=== PATIENT | male | born 1975 | race Caucasian/White ===

== ENCOUNTER 2021-08-23 03:33 | Emergency (ER) | payer SELFPAY ==
--- OUTSIDE RECORDS SUMMARY | 2021-08-23 03:36 | XMS REPORT | Continuity of Care Document ---
:1975 Author Organization [facility] t Address [address] [place] [address] Care Team Providers Name Role Phone Group, [facility] Physician [phone] Boris PINEDA, Somogyi Attending Clinician Anni PINEDA, H Attending Clinician Carson ALICIA Attending Clinician Advance Directives Directive Decision Effective Termination Comments Source Date Date Healthcare Agents on N/A Marylou dos santos FileNameRelationshipHealthcare Seybold Agent RelationshipCommunicationBea[facility] Hospitalther[facility] [phone] (Mobile) Problems Condition Condition Condition Status Onset Resolution Last Treating Co mments Source Name Details Category Date Date Treatment Clinician Date No known No known Disease Kelse y active active Seybold problems problems Allergies, Adverse Reactions, Alerts This patient has no known allergies or adverse reactions. Social History Social Habit Start Date Stop Date Quantity Comments Source Exposure to Not sure Michelle Rendon maurice SARS-CoV-2 (event) Tobacco use and 2021-07-02 2021-07-02 Smokeless tobacco Adriano Juarez exposure 00:00:00 00:00:00 non-user Sex Ass[birth year] M Michelle carreno 00:00:00 00:00:00 Smoking Status Start Date Stop Date Source Tobacco smoking consumption unknown Michelle Juarez Never smoked tobacco Michelle Zaragoza old Medications Ordered Filled Start Stop Current Ordering Indication Dosage Frequency Signature Comments Components Source Medication Medication Date Date Medication? Clinician (SIG) Name Name Acetaminoph 2021- No 1{tbl} Q4H Take 1 K elsey en-Codeine 3-30 03-30 tablet by Radha bold 300-30 MG 11:29: 00:00 mouth oral Tablet 10 :00 every 4 hours as needed for pain Colchicine Yes [id number] Take 2 Michelle 0.6 MG oral 3-30 9101 tablets by Se ybold Tablet 00:00: mouth for 00 acute gout attack take 1 tablet one hour later Then 1 tablet twice a day til diarrhea or gout resolves Amoxicillin Yes [id number] 1{tbl} Take 1 Michelle -Pot 3-30 tablet by Seybold Clavulanate 00:00: mouth in 875-125 MG 00 the oral Tablet morning and 1 tablet in the evening. Acetaminoph Yes [id number] 1{tbl} Q4H Take 1-2 Michelle en-Codeine 3-30 9101 tablets by y bold 300-30 MG 00:00: mouth oral Tablet 00 every 4 hours as needed for pain Cyclobenzap 2021- No 10mg Q.[id number] Take 10 mg Michelle rine HCl 10 2-07 02-07 [id number] by mouth 3 Seybold MG oral 09:22: 00:00 3D times Tablet 08 :00 daily as needed Ciprofloxac Yes [id number] 500mg Take 1 Michelle in HCl 500 2-07 tablet Seybold MG oral 00:00: (500 mg Tablet 00 total) by mouth 2 times daily Ciprofloxac 2021- No [id number] 500mg Take 1 Michelle in HCl 500 07-02 tablet Seybol d MG oral 00:00: 00:00 (500 mg Tablet 00 :00 total) by mouth 2 times daily Cyclobenzap Yes 10mg Q.[id number] Take 10 mg Michelle rine HCl 10 06-29 [id number] by mouth 3 Seybold MG oral 12:05: 3D times Tablet 14 daily as needed Azithromyci 2020- No [id number] Take 2 Michelle n 250 MG 02-09 tablets by Seyb old oral Tablet 00:00: 04:59 mouth on 00 :00 day 1 then 1 tablet by mouth daily for 4 days thereafter . Immunizations Ordered Immunization Filled Immunization Date Status Commen ts Source Name Name Influenza Virus 2018-05-07 Completed Michelle Se ybold Vaccine, age 6 00:00:00 months and up Influenza Virus 2018-05-07 Completed Michelle Se ybold Vaccine, age 6 00:00:00 months and up Influenza Virus 2016-03-13 Completed Michelle Se ybold Vaccine, age 6 00:00:00 months and up Influenza Virus 2016-03-13 Completed Michelle Se ybold Vaccine, age 6 00:00:00 months and up Vital Signs Vital Name Observation Time Observation Value Comments Source Systolic blood pressure 2021-08-22 15:51:00 136 mm[Hg] Michelle ybirene Diastolic blood 2021-08-22 15:51:00 89 mm[Hg] Kelse y Seybold pressure Heart rate 2021-08-22 15:51:00 69 /min Michelle Claus eva Body temperature 2021-08-22 15:51:00 36.33 Minal Marylou ey Seybold Respiratory rate 2021-08-22 15:51:00 15 /min Marylou ey Seybold Body height 2021-08-22 15:51:00 177.8 cm Michelle Claus eva Body weight 2021-08-22 15:51:00 129.275 kg Michelleradha dos santosboirais BMI 2021-08-22 15:51:00 40.89 kg/m2 Michelle Claus dos santostori Oxygen saturation in 2021-08-22 15:51:00 98 /min Michelle Juarez Arterial blood by Pulse oximetry Systolic blood pressure 2021-07-02 15:16:00 140 mm[Hg] Michelle Juarez Diastolic blood 2021-07-02 15:16:00 89 mm[Hg] Gui Juarez pressure Heart rate 2021-07-02 15:16:00 98 /min Michelle velasquez Body temperature 2021-07-02 15:16:00 37.22 Minal Marylou Juarez Respiratory rate 2021-07-02 15:16:00 15 /min Marylou Juarez Body height 2021-07-02 15:16:00 177.8 cm Michelle velasquez Body weight 2021-07-02 15:16:00 132.904 kg Michelle velasquez BMI 2021-07-02 15:16:00 42.04 kg/m2 Michelle velasquez Procedures Procedure Date / Time Performed Performing Clinician Sourc e URINALYSIS NONAUTO W/O 2021-07-02 15:44:00 Candace Escalante i Michelle Juarez SCOPE Encounters Start End Encounter Admission Attending Care Care Encounter Source Date/Time Date/Time Type Type Clinicians Facility Department ID 2021-08-22 2021-08-22 Office Regis Escalante [id number] Michelle 11:00:00 11:15:00 Visit Candacejj Smith [id number] Se wai Somogyi [id number] 2021-07-02 2021-07-02 Office Regis Escalante [id number] Michelle 09:00:00 09:15:00 Visit Candace Smith [id number] Se joeyirene Somogyi [id number] 2021-06-29 2021-06-29 Telemed[facility] ZEYNEP Hutton [id number] Michelle 11:30:00 11:43:43 ne Izaiah Dougherty [id number] S eva [id number] 2021-02-09 2021-02-09 Tele[facility] Antonio Byrd [id number] Michelle 11:02:11 11:19:25 olman Carri Borges [id number] Se carreno [id number] Results Test Description Test Time Test Comments Results Result Comments Source URINALYSIS NONAUTO W/O SCOPE 2021-07-02 15:44:00 Test Item Value Reference Range Interpretation Comme nts UD KETONES (test code = NEG 5-160 877204) UD GLUCOSE (test code = 2000 g/dL 100-2000 435110) UD PROTEIN (test code = 30 mg/dL Trace - 2,000 277891) UD LEUKOCYTES (test code = TRACE Trace - Large @ 2 480419) min. UD NITRITE (test code = NEG Neg. - Pos. @ 60 307152) sec. UD UROBILINOGEN (test code = 1 mg/dL 0.2-8 305245) UD PH (test code = 996317) See_Comment [Automated message] The system which ge nerated this result tra nsmitted reference range : 5.0 - 8.5 @ 60 sec.. The reference range was not used to interpr et this result as normal/abnormal . UD BLOOD (test code = 891552) LARGE Neg. - Large @ 60 sec. UD SPECIFIC GRAVITY (test See_Comment [ Automated message] The code = 923384) system which generated this result tra nsmitted reference range : 1.000 - 1.030 @ 45 sec. . The reference range was not used to interpr et this result as normal/abnormal . UD BILIRUBIN (test code = NEG Neg. - Large @ 45 928135) sec. Lab Interpretation (test code Abnormal = 38243-7) Michelle Juarez
[2021-08-23] MEDS ORDERED: COLCHICINE 0.6 MG TAB ONE ×2 (04:26→05:42)
[2021-08-23] MEDS ORDERED: MORPHINE 4 MG/ML SYR ONE (04:26)
[2021-08-23] MEDS ORDERED: METHYLPREDNISOLONE 125 MG INJ ONE (04:26)
[2021-08-23] MEDS ORDERED: AMPICILLIN/SULBACTAM 3GM/VIAL ONE (04:26)
[2021-08-23] MEDS ORDERED: NA CHLORIDE 0.9% 2,000 ML ONE (04:27)
[2021-08-23] MEDS ORDERED: NA CHLORIDE 0.9% 100 ML IV ONE (04:27)
[2021-08-23] MEDS ORDERED: ONDANSETRON 4 MG/2 ML VIAL ONE (04:27)
[2021-08-23 04:48] LABS: Absolute Lymphocytes (CBC) 1.5 K/uL (0.7-4.9); Hematocrit 41.9 % (39.6-49.0); MPV 10.4 fL (7.6-11.3); RBC Red Blood Cell Count 4.65 M/uL (4.33-5.43)
[2021-08-23 04:49] LABS: Protime INR 1.26
[2021-08-23 05:13] LABS: ALT/SGPT 28 U/L (12-78); AST/SGOT 22 U/L (15-37); Albumin 2.6 g/dL (3.4-5.0); Alkaline Phosphatase 165 U/L (45-117); BUN Blood Urea Nitrogen 13 mg/dL (7-18); Bicarbonate 27 mmol/L (21-32); Bilirubin Direct 0.5 mg/dL (0-0.2); Bilirubin Total 1.2 mg/dL (0.2-1.0); Glucose Level 329 mg/dL (74-106); Lipase 134 U/L (73-393); NT PRO-BNP 77 pg/mL (<125); Potassium 3.6 mmol/L (3.5-5.1); Protein, Total 6.8 g/dL (6.4-8.2); Sodium Level 136 mmol/L (136-145); Troponin High Sensitivity 3.7 pg/mL (<58.9); Uric Acid 4.2 mg/dL (3.5-7.2)
[2021-08-23 05:16] LABS: Magnesium 1.4 mg/dL (1.8-2.4)
[2021-08-23] MEDS ORDERED: predniSONE 20 MG TAB ONE (05:25)
[2021-08-23] MEDS ORDERED: KETOROLAC 30 MG/ML INJ ONE (05:25)
[2021-08-23] MEDS ORDERED: MAGNESIUM SULFATE 1 gm IVPB 1 GM/100 ML BAG IV ONE (05:26)
[2021-08-23] MEDS ORDERED: INSULIN -REGULAR HUMAN 50 UNIT/0.5 ML ML ONE (05:26)
--- NOTE | 2021-08-23 05:35 | EDPHYS ---
Physician Documentation [facility] Name: Miguel Ángel Story Age: 46 yrs Sex: Male : 1975 Arrival Date: 08/23/2021 Time: 03:37 Bed 5 Private MD: SIERRA Physician Saurav Cooper HPI: 08/23 04:18 This 46 yrs old Male presents to ER via Ambulatory with complaints of Arm cornelia Pain. 04:18 The patient or guardian complains of decreased range of motion, injury, pain. The cornelia complaints affect the dorsal aspect of right forearm, right wrist and right hand. Context: The problem was sustained at home, resulted from repetitive motion TEARING UP BOXES. Onset: The symptoms/episode began/occurred 3 day(s) ago. Treatment prior to arrival includes: no previous treatment. Modifying factors: The symptoms are alleviated by remaining still, the symptoms are aggravated by movement, lifting weight. Associated signs and symptoms: The patient has no apparent associated signs or symptoms. Severity of symptoms: At their worst the symptoms were mild, moderate, in the emergency department the symptoms have improved, mildly. The patient has experienced similar episodes in the past, a few times. Historical: - Allergies: 03:43 NKA; as6 - Home Meds: 03:43 None [Active]; as6 - PMHx: 03:43 Depression; Diabetes - NIDDM; GERD; Gout; Hyperlipidemia; Hypertension; as6 - PSHx: 03:43 None; as6 - Immunization history:: Client reports having NOT received the Covid vaccine. - Social history:: Smoking status: Patient denies any tobacco usage or history of. - Family history:: not pertinent. ROS: 04:18 Constitutional: Negative for fever, chills, and weight loss, Eyes: Negative for injury, cornelia pain, redness, and discharge, Neck: Negative for injury, pain, and swelling, Cardiovascular: Negative for chest pain, palpitations, and edema, Respiratory: Negative for shortness of breath, cough, wheezing, and pleuritic chest pain, Abdomen/GI: Negative for abdominal pain, nausea, vomiting, diarrhea, and constipation, Back: Negative for injury and pain, : Negative for injury, bleeding, discharge, and swelling, Skin: Negative for injury, rash, and discoloration, Neuro: Negative for headache, weakness, numbness, tingling, and seizure, Psych: Negative for depression, anxiety, suicide ideation, homicidal ideation, and hallucinations, Allergy/Immunology: Negative for hives, rash, and allergies, Endocrine: Negative for neck swelling, polydipsia, polyuria, polyphagia, and marked weight changes, Hematologic/Lymphatic: Negative for swollen nodes, abnormal bleeding, and unusual bruising. 04:18 ENT: Positive for DRY MM. 04:18 MS/extremity: Positive for decreased range of motion, erythema, pain, swelling, tenderness, of the dorsal aspect of right forearm, right wrist and right hand. Exam: 04:18 Constitutional: This is a well developed, well nourished patient who is awake, alert, cornelia and in no acute distress. Head/Face: Normocephalic, atraumatic. Eyes: Pupils equal round and reactive to light, extra-ocular motions intact. Lids and lashes normal. Conjunctiva and sclera are non-icteric and not injected. Cornea within normal limits. Periorbital areas with no swelling, redness, or edema. ENT: Nares patent. No nasal discharge, no septal abnormalities noted. Tympanic membranes are normal and external auditory canals are clear. Oropharynx with no redness, swelling, or masses, exudates, or evidence of obstruction, uvula midline. Mucous membranes moist. Neck: Trachea midline, no thyromegaly or masses palpated, and no cervical lymphadenopathy. Supple, full range of motion without nuchal rigidity, or vertebral point tenderness. No Meningismus. Chest/axilla: Normal chest wall appearance and motion. Nontender with no deformity. No lesions are appreciated. Cardiovascular: Regular rate and rhythm with a normal S1 and S2. No gallops, murmurs, or rubs. Normal PMI, no JVD. No pulse deficits. Respiratory: Lungs have equal breath sounds bilaterally, clear to auscultation and percussion. No rales, rhonchi or wheezes noted. No increased work of breathing, no retractions or nasal flaring. Abdomen/GI: Soft, non-tender, with normal bowel sounds. No distension or tympany. No guarding or rebound. No evidence of tenderness throughout. Back: No spinal tenderness. No costovertebral tenderness. Full range of motion. Skin: Warm, dry with normal turgor. Normal color with no rashes, no lesions, and no evidence of cellulitis. Neuro: Awake and alert, GCS 15, oriented to person, place, time, and situation. Cranial nerves II-XII grossly intact. Motor strength 5/5 in all extremities. Sensory grossly intact. Cerebellar exam normal. Normal gait. Psych: Awake, alert, with orientation to person, place and time. Behavior, mood, and affect are within normal limits. 04:18 Musculoskeletal/extremity: Extremities: grossly normal except: decreased ROM, erythema, pain, swelling, tenderness, ROM: limited active range of motion due to pain, limited passive range of motion due to pain, Circulation is intact in all extremities. Sensation intact. Compartment Syndrome exam of affected extremity: is normal. DVT Exam: negative Homans' sign noted on exam, no appreciated bluish discoloration, pain, swelling, tenderness, erythema, increased warmth, that is moderate, of the right hand. 05:38 ECG was reviewed by the Attending Physician. [facility] Vital Signs: 03:40 BP 154 / 104; Pulse 90; Resp 18 S; Temp 97.5(TE); Pulse Ox 97% on R/A; Weight 129.27 kg as6 (R); Height 5 ft. 11 in. (180.34 cm) (R); Pain 10/10; 03:47 BP 134 / 80; Pulse 85; Resp 14; Pulse Ox 96% on R/A; st1 04:10 BP 129 / 83; Pulse 76; Resp 16; Pulse Ox 96% on R/A; st1 05:05 BP 122 / 77; Pulse 74; Resp 18 S; Pulse Ox 96% on R/A; as6 05:54 BP 121 / 79; Pulse 84; Resp 18 S; Pulse Ox 95% on R/A; as6 06:07 BP 121 / 80; Pulse 75; Resp 16; Pulse Ox 100% on R/A; st1 03:40 Body Mass Index 39.75 (129.27 kg, 180.34 cm) as6 Peter Coma Score: 03:46 Eye Response: spontaneous(4). Verbal Response: oriented(5). Motor Response: obeys st1 commands(6). Total: 15. MDM: 03:39 Patient medically screened. [facility] 04:25 Differential diagnosis: contusion, tendonitis. Data reviewed: vital signs, nurses [facility] notes, lab test result(s), EKG, radiologic studies, plain films. Data interpreted: Pulse oximetry: on room air is 96 %. Test interpretation: by ED physician or midlevel provider: ECG, plain radiologic studies. Counseling: I had a detailed discussion with the patient and/or guardian regarding: the historical points, exam findings, and any diagnostic results supporting the discharge/admit diagnosis, lab results, radiology results. 08/23 04:17 Order name: Basic Metabolic Panel; Complete Time: 05:16 [facility] 08/23 04:17 Order name: CBC with Diff; Complete Time: 05:16 [facility] 08/23 04:17 Order name: LFT's; Complete Time: 05:16 [facility] 08/23 04:17 Order name: Magnesium; Complete Time: 05:16 [facility] 08/23 04:17 Order name: NT PRO-BNP; Complete Time: 05:16 [facility] 08/23 04:17 Order name: PT-INR; Complete Time: 05:08 cornelia 08/23 04:17 Order name: Troponin HS; Complete Time: 05:16 [facility] 08/23 04:17 Order name: Lipase; Complete Time: 05:16 [facility] 08/23 04:17 Order name: Lactate; Complete Time: 05:08 [facility] 08/23 04:17 Order name: Procalcitonin 08/23 04:17 Order name: Uric Acid; Complete Time: 05:16 [facility] 08/23 04:17 Order name: Blood Culture Adult (2) 08/23 04:17 Order name: Sed Rate; Complete Time: 05:16 08/23 04:18 Order name: SARS-COV-2 RT PCR (Document "Date of Onset" if Symptomatic) 08/23 04:17 Order name: XRAY Chest (1 view) 08/23 04:17 Order name: EKG; Complete Time: 04:18 08/23 04:17 Order name: Cardiac monitoring; Complete Time: 04:35 cornelia 08/23 04:17 Order name: Hand Right 3 View XRAY 08/23 04:17 Order name: EKG - Nurse/Tech; Complete Time: 05:04 08/23 04:17 Order name: IV Saline Lock; Complete Time: 04:34 08/23 04:17 Order name: Labs collected and sent; Complete Time: 04:35 08/23 04:17 Order name: O2 Per Protocol; Complete Time: 04:18 08/23 04:17 Order name: O2 Sat Monitoring; Complete Time: 04:18 [facility] 08/23 05:29 Order name: Ice pack; Complete Time: 05:34 [facility] 08/23 05:49 Order name: Splint; Complete Time: 05:54 [facility] EC:38 Rate is 72 beats/min. Rhythm is regular. QRS [place] is Normal. [place] interval is normal. QRS cornelia interval is normal. QT interval is normal. No Q waves. T waves are Normal. No ST changes noted. Clinical impression: Normal ECG and No evidence of ischemia. Interpreted by me. Reviewed by me. Administered Medications: 04:42 Drug: SOLU-Medrol (methylPrednisoLONE) 125 mg Route: IVP; Site: left antecubital; as6 05:42 Follow up: Response: No adverse reaction as6 04:42 Drug: colchicine 1.2 mg Route: PO; as6 05:42 Follow up: Response: No adverse reaction as6 04:42 Drug: morphine 4 mg Route: IVP; Site: left antecubital; as6 05:43 Follow up: Response: No adverse reaction; RASS: Alert and Calm (0) as6 04:42 Drug: Zofran (Ondansetron) 4 mg Route: IVP; Site: left antecubital; as6 05:43 Follow up: Response: No adverse reaction as6 04:43 Drug: Unasyn (ampicillin-sulbactam) 3 grams Route: IVPB; Infused Over: 30 mins; Site: as6 left antecubital; 05:42 Follow up: Response: No adverse reaction; IV Status: Completed infusion; IV Intake: as6 100ml 04:44 Drug: NS 0.9% 1000 ml Route: IV; Rate: 125 ml/hr; Site: left antecubital; as6 05:42 Follow up: Response: No adverse reaction; IV Status: Order to discontinue infusion; IV as6 Intake: 200ml 04:45 Drug: NS 0.9% 1000 ml Route: IV; Rate: 1 bolus; Site: left antecubital; as6 05:41 Follow up: Response: No adverse reaction; IV Status: Completed infusion; IV Intake: as6 1000ml 05:30 Drug: Insulin Regular Human 7 units {Co-Signature: st1 (Johanny Boyer RN).} Route: as6 IVP; Site: left antecubital; 05:43 Follow up: Response: No adverse reaction as6 05:30 Drug: predniSONE 40 mg Route: PO; as6 05:43 Follow up: Response: No adverse reaction as6 05:30 Drug: Ketorolac 30 mg Route: IVP; Site: left antecubital; as6 05:43 Follow up: Response: No adverse reaction as6 05:34 Drug: Magnesium Sulfate 1 grams Route: IVPB; Infused Over: 1 hrs; Site: left as6 antecubital; 05:44 Follow up: Response: No adverse reaction; IV Status: Completed infusion; IV Intake: as6 100ml 05:41 Drug: Colcrys (colchicine) 0.6 mg Route: PO; as6 05:43 Follow up: Response: No adverse reaction as6 Disposition Summary: 08/23/21 05:34 Discharge Ordered Location: Home cornelia Problem: new cornelia Symptoms: have improved cornelia Condition: Stable cornelia Diagnosis - Type 2 diabetes mellitus with hyperglycemia cornelia - Soft tissue disorder, unspecified - , OVERUSE cornelia - Hypomagnesemia cornelia Followup: cornelia - With: Private Physician - When: 2 - 3 days - Reason: Recheck today's complaints, Continuance of care, Re-evaluation by your physician Followup: cornelia - With: Abdirahman Block MD - When: 2 - 3 days - Reason: Recheck today's complaints, Re-evaluation by your physician Discharge Instructions: - Discharge Summary Sheet cornelia - Type 2 Diabetes Mellitus, Diagnosis, Adult cornelia - Hyperglycemia cornelia - Blood Glucose Monitoring, Adult cornelia - Diabetes Mellitus and Nutrition, Adult cornelia - Hypomagnesemia cornelia - Hyperglycemia, Efcy-[id number]-Nucw [facility] Forms: - Medication Reconciliation Form cornelia - Thank You Letter cornelia - Antibiotic Education cornelia - Prescription Opioid Use [facility] Prescriptions: - Cephalexin 500 mg Oral Capsule - take 1 capsule by ORAL route every 6 hours for 7 days; 28 capsule; Refills: 0, [facility] Product Selection Permitted - Diclofenac Sodium 75 mg Oral tablet,delayed release (DR/EC) - take 1 tablet by ORAL route 2 times per day; 20 tablet; Refills: 0, Product cornelia Selection Permitted - Prednisone 20 mg Oral Tablet - take 2 tablets by ORAL route once daily for 5 days; 10 tablet; Refills: 0, [facility] Product Selection Permitted - Tylenol-Codeine #3 300 mg-30 mg Oral - take 2 tablet by ORAL route every 6 hours; 20 tablet; Refills: 0, Product cornelia Selection Permitted Signatures: Dispatcher [employer] Saurav Owens MD MD cha Slawson, Ashby RN RN as6 Johanny Boyer RN st1
--- NOTE | 2021-08-23 05:35 | ER ---
Nurse's Notes [facility] Name: Miguel Ángel Story Age: 46 yrs Sex: Male : 1975 Arrival Date: 08/23/2021 Time: 03:37 Bed 5 Private MD: Diagnosis: Type 2 diabetes mellitus with hyperglycemia;Soft tissue disorder, unspecified-, OVERUSE;Hypomagnesemia Presentation: 08/23 03:40 Chief complaint: Patient states: "I was breaking down cardboard boxes on Friday and I as6 think I may have sprained it." pt was seen for this issue my PCP yesterday. pt c/o r wrist. Coronavirus screen: At this time, the client does not indicate any symptoms associated with coronavirus-19. Ebola Screen: No symptoms or risks identified at this time. Initial Sepsis Screen: Does the patient meet any 2 criteria? No. Patient's initial sepsis screen is negative. Does the patient have a suspected source of infection? No. Patient's initial sepsis screen is negative. Risk Assessment: Do you want to hurt yourself or someone else? Patient reports no desire to harm self or others. Onset of symptoms was August 19, 2021. 03:40 Method Of Arrival: Ambulatory as6 03:40 Acuity: ILAN 3 as6 Triage Assessment: 03:48 General: Appears in no apparent distress. uncomfortable, obese, well groomed, Behavior st1 is calm, cooperative. Historical: - Allergies: 03:43 NKA; as6 - Home Meds: 03:43 None [Active]; as6 - PMHx: 03:43 Depression; Diabetes - NIDDM; GERD; Gout; Hyperlipidemia; Hypertension; as6 - PSHx: 03:43 None; as6 - Immunization history:: Client reports having NOT received the Covid vaccine. - Social history:: Smoking status: Patient denies any tobacco usage or history of. - Family history:: not pertinent. Screenin:43 Abuse screen: Denies threats or abuse. Nutritional screening: No deficits noted. st1 Tuberculosis screening: No symptoms or risk factors identified. Fall Risk None identified. No fall in past 12 months (0 pts). No secondary diagnosis (0 pts). No IV (0 pts). Ambulatory Aid- None/Bed Rest/Nurse Assist (0 pts). Gait- Normal/Bed Rest/Wheelchair (0 pts) Mental Status- Oriented to own ability (0 pts). Total Johnson Fall Scale indicates No Risk (0-24 pts). Assessment: 03:43 Reassessment: please see triage note. Pain:. st1 Vital Signs: 03:40 BP 154 / 104; Pulse 90; Resp 18 S; Temp 97.5(TE); Pulse Ox 97% on R/A; Weight 129.27 kg as6 (R); Height 5 ft. 11 in. (180.34 cm) (R); Pain 10/10; 03:47 BP 134 / 80; Pulse 85; Resp 14; Pulse Ox 96% on R/A; st1 04:10 BP 129 / 83; Pulse 76; Resp 16; Pulse Ox 96% on R/A; st1 05:05 BP 122 / 77; Pulse 74; Resp 18 S; Pulse Ox 96% on R/A; as6 05:54 BP 121 / 79; Pulse 84; Resp 18 S; Pulse Ox 95% on R/A; as6 06:07 BP 121 / 80; Pulse 75; Resp 16; Pulse Ox 100% on R/A; st1 03:40 Body Mass Index 39.75 (129.27 kg, 180.34 cm) as6 [place] Coma Score: 03:46 Eye Response: spontaneous(4). Verbal Response: oriented(5). Motor Response: obeys st1 commands(6). Total: 15. ED Course: 03:37 Patient arrived in ED. [email or web address] 03:39 Saurav Cooper MD is Attending Physician. cornelia 03:40 Primo Peraza, PRIETO is Primary Nurse. as6 03:43 Triage completed. as6 03:44 Patient has correct armband on for positive identification. Bed in low position. Call st1 light in reach. Side rails up X 1. Pulse ox on. NIBP on. Door closed. Warm blanket given. Verbal reassurance given. Head of bed elevated. 03:45 Arm band placed on. as6 03:46 No provider procedures requiring assistance completed. st1 04:35 CBC with Diff Sent. st1 04:35 Basic Metabolic Panel Sent. st1 04:35 LFT's Sent. st1 04:35 Magnesium Sent. st1 04:35 Troponin HS Sent. st1 04:35 PT-INR Sent. st1 04:35 Sed Rate Sent. st1 04:35 Uric Acid Sent. st1 04:35 Procalcitonin Sent. st1 04:35 Lipase Sent. st1 04:35 Lactate Sent. st1 04:41 Blood Culture Adult (2) Sent. la1 04:43 Hand Right 3 View XRAY Sent. st1 04:44 NT PRO-BNP Sent. st1 04:48 SARS-COV-2 RT PCR (Document "Date of Onset" if Symptomatic) Sent. st1 04:55 XRAY Chest (1 view) In Process Unspecified. EDMS 04:55 Hand Right 3 View XRAY In Process Unspecified. EDMS 05:31 Abdirahman Block MD is Referral Physician. cornelia 06:09 IV discontinued, intact, bleeding controlled, No redness/swelling at site. Pressure as6 dressing applied. Administered Medications: 04:42 Drug: SOLU-Medrol (methylPrednisoLONE) 125 mg Route: IVP; Site: left antecubital; as6 05:42 Follow up: Response: No adverse reaction as6 04:42 Drug: colchicine 1.2 mg Route: PO; as6 05:42 Follow up: Response: No adverse reaction as6 04:42 Drug: morphine 4 mg Route: IVP; Site: left antecubital; as6 05:43 Follow up: Response: No adverse reaction; RASS: Alert and Calm (0) as6 04:42 Drug: Zofran (Ondansetron) 4 mg Route: IVP; Site: left antecubital; as6 05:43 Follow up: Response: No adverse reaction as6 04:43 Drug: Unasyn (ampicillin-sulbactam) 3 grams Route: IVPB; Infused Over: 30 mins; Site: as6 left antecubital; 05:42 Follow up: Response: No adverse reaction; IV Status: Completed infusion; IV Intake: as6 100ml 04:44 Drug: NS 0.9% 1000 ml Route: IV; Rate: 125 ml/hr; Site: left antecubital; as6 05:42 Follow up: Response: No adverse reaction; IV Status: Order to discontinue infusion; IV as6 Intake: 200ml 04:45 Drug: NS 0.9% 1000 ml Route: IV; Rate: 1 bolus; Site: left antecubital; as6 05:41 Follow up: Response: No adverse reaction; IV Status: Completed infusion; IV Intake: as6 1000ml 05:30 Drug: Insulin Regular Human 7 units {Co-Signature: st1 (Johanny Boyer RN).} Route: as6 IVP; Site: left antecubital; :43 Follow up: Response: No adverse reaction as6 05:30 Drug: predniSONE 40 mg Route: PO; as6 05:43 Follow up: Response: No adverse reaction as6 05:30 Drug: Ketorolac 30 mg Route: IVP; Site: left antecubital; as6 05:43 Follow up: Response: No adverse reaction as6 05:34 Drug: Magnesium Sulfate 1 grams Route: IVPB; Infused Over: 1 hrs; Site: left as6 antecubital; :44 Follow up: Response: No adverse reaction; IV Status: Completed infusion; IV Intake: as6 100ml 05:41 Drug: Colcrys (colchicine) 0.6 mg Route: PO; as6 05:43 Follow up: Response: No adverse reaction as6 Intake: 05:41 IV: 1000ml; Total: 1000ml. as6 05:42 IV: 200ml; Total: 1200ml. as6 05:42 IV: 100ml; Total: 1300ml. as6 05:44 IV: 100ml; Total: 1400ml. as6 Outcome: 05:34 Discharge ordered by . [facility] 06:08 Discharged to home ambulatory, with family. as6 06:08 Condition: stable 06:08 Discharge instructions given to patient, family, Instructed on discharge instructions, follow up and referral plans. medication usage, Demonstrated understanding of instructions, follow-up care, medications, splint care, Prescriptions given X 4. 06:09 Patient left the ED. as6 Signatures: Dispatcher [employer] EDMS Saurav Cooper MD MD cha Attema, Lee, MOLD MAINTENANCE TECHNICIAN-C MOLD MAINTENANCE TECHNICIAN-Cla1 Primo Peraza RN RN as6 Kitty Bah kc5 Johanny Boyer RN RN st1 Johanny Boyer RN st1 Corrections: (The following items were deleted from the chart) 04:02 03:47 BP 134 / 90; Pulse 85bpm; Resp 14bpm; Pulse Ox 96% RA; st1 st1
[2021-08-23 06:16] VITALS: TEMP 97.5
[2021-08-23 06:23] VITALS: BP 121/80; O2SAT 100
--- NOTE | 2021-08-23 10:07 | RAD REPORT ---
EXAM DESCRIPTION: RAD - Chest Single View - 08/23/2021 4:53 am CLINICAL HISTORY: 46 years Male, COUGH COMPARISON: None FINDINGS: No focal lung consolidation. No pleural effusion. No pneumothorax. Cardiac and mediastinal silhouette is unremarkable. No acute osseous abnormality. Soft tissues are unremarkable. IMPRESSION: No acute findings. No focal lung consolidation. Electronically signed by: Mukund Santana DO 08/23/2021 5:23 AM CDT Due to temporary technical issues with the PACS/Fluency reporting system, reports are being signed by the in house radiologist without review as a courtesy to ensure prompt reporting. The interpreting r adiologist is fully responsible for the content of the report.
--- NOTE | 2021-08-23 10:14 | RAD REPORT ---
EXAM DESCRIPTION: RAD - Hand Right 3 View - 08/23/2021 4:53 am CLINICAL HISTORY: 46 years Male, Pain;Swelling COMPARISON: None. FINDINGS: No fracture or dislocation. Soft tissue swelling in the dorsum of the hand. No radiopaque foreign bodies. IMPRESSION: No acute osseous abnormality. Electronically signed by: Mukund Santana DO 08/23/2021 5:24 AM CDT Due to temporary technical issues with the PACS/Fluency reporting system, reports are being signed by the in house radiologist without review as a courtesy to ensure prompt reporting. The interpreting r adiologist is fully responsible for the content of the report.
--- NOTE | 2021-08-27 11:26 | EKG ---
Test Date: 2021-08-23 Test Time: 05:02:55 [employer] Development Engineer: MEASUREMENT RESULTS: Intervals: Rate: 72 [place]: 160 QRSD: 90 QT: 422 QTc: 462 [place]: P: 6 [place]: 160 QRS: 37 T: 35 INTERPRETIVE STATEMENTS: Normal sinus rhythm Normal ECG Compared to ECG 07/02/2017 10:04:58 No significant changes Electronically Signed On 08-27-21 11:14:24 CDT by Edmundo Parra
== END 2021-08-23 06:09 | disposition home or self-care (01) ==
LOC: ER 03:33
DX: E11.65 Type 2 diabetes mellitus with hyperglycemia (principal); E83.42 Hypomagnesemia; M79.89 Other specified soft tissue disorders; I10 Essential (primary) hypertension; Z20.822 Contact with and (suspected) exposure to COVID-19
CPT/HCPCS: 36415; 71045; 80048; 80076; 83605; 83690; 83735; 83880; 84145; 84484; 84550; 85025; 85610; 85652; 87040; 87077; 87186; 87205; 93005; 96365; 96375; 99284; J0295; J2405; J2930; J3475; J7030; J7512; U0003